=== PATIENT | female | born 1960 | race Caucasian/White ===

== ENCOUNTER 2025-05-06 06:59 | Emergency (ER) | payer OTHER, SELFPAY ==
--- OUTSIDE RECORDS SUMMARY | 2025-05-02 11:45 | XMS_ITS | Encounter Summary ---
Author Organization [facility] Address [address] [place] [id number] Care Team Providers Care Veneer Taping Machine Operator Name Role Phone Tarah Choudhury MD Primary Care Provider [phone] Reason for Referral * Imaging - Diagnostic (Routine) - Closed Specialty Diagnoses / Procedures Referred By Contac t Referred To Contact Diagnoses Left hip pain Procedures X-ray Hip 2+ Views with AP Pelvis Left Janessa Rodríguez, PAC [address] [facility] [address] [place] [address] Phone: tel: fax: Referral ID Status Reason Start Date Expiration Date Visits Re quested Visits Authorized [id number] Closed 05/02/2025 07/31/2026 1 1 EL WORKER Reason for Visit * Imaging - Diagnostic (Routine) - Closed Specialty Diagnoses / Procedures Referred By Contac t Referred To Contact Diagnoses Left hip pain Procedures X-ray Hip 2+ Views with AP Pelvis Left Janessa Rodríguez, PAC [address] [facility] [address] [place] [address] Phone: tel: fax: Referral ID Status Reason Start Date Expiration Date Visits Re quested Visits Authorized [id number] Closed 05/02/2025 07/31/2026 1 1 Encounter Details Date Type Department Care Team (Latest Contact Info) Description 05/02/2025 11:45 AM GOSPEL WORKER - 05/02/2025 11:59 PM GOSPEL WORKER Hospital Encounter [facility] Diagnostic Radiology [address] [place] [id number] Left hip pain Discharge Disposition: Home With No Services Social History Tobacco Use Types Packs/Day Years Used Date Smoking Tobacco: Never Smokeless Tobacco: Never Comments Unknown Sex and Gender Information Value Date Recorded Sex Assigned at Not on file Legal Sex Female 3:56 PM CDT Gender Identity Not on file Sexual Orientation Not on file documented as of this encounter Medications at Time of Discharge atenoloL (Tenormin) 50 mg tablet Take 1 tablet (50 mg total) by mouth daily. cephALEXin (Keflex) 500 mg capsule TAKE 4 CAPSULES 1 HOUR PRIOR TO DENTAL APPOINTMENT 01/03/2025 chlorthalidone (Hygroten) 25 mg tablet Take 1 tablet (25 mg total) by mouth daily. ketoconazole (NIZORAL) 2 % cream 11/26/2024 latanoprost (XALATAN) 0.005 % ophthalmic solution 01/29/2025 lisinopriL (Zestril) 20 mg tablet Take 1 tablet (20 mg total) by mouth daily. rosuvastatin (Crestor) 5 mg tablet Take 1 tablet (5 mg total) by mouth daily. spironolactone (Aldactone) 50 mg tablet Take 1 tablet (50 mg total) by mouth daily with morning meal. Zepbound 15 mg/0.5 mL pen injector See Instructions, INJECT 1 SYRINGE (15 MG) INTO THE SKIN ONCE A WEEK, # 2 mL, 1 Refill(s), Pharmacy: [facility], 163, cm, 11/26/24 15:08:00 CDT, Height, 83.8, kg, 11/26/24 15:09:00 CDT, Weight Dosing 12/22/2024 documented as of this encounter Plan of Treatment Not on file documented as of this encounter Procedures Procedure Name Priority Date/Time Associated Diagnosis Comments XR HIP 2+ VIEWS WITH AP PELVIS LEFT Routine 05/02/2025 12:09 PM GOSPEL WORKER Left hip pain documented in this encounter Results * X-ray Hip 2+ Views with AP Pelvis Left (05/02/2025 12:09 PM GOSPEL WORKER) Anatomical Region Laterality Modality Pelvis, Hip Left Radiographic Sofia ging Impressions 05/02/2025 3:22 PM GOSPEL WORKER EXAM: XR HIP 2+ VIEWS WITH AP PELVIS LEFT INDICATION: hip pain, left COMPARISON: XR HIP 2+ VIEWS WITH AP PELVIS RIGHT on DOS: 02/17/25 FINDINGS/IMPRESSION: Bilateral total hip arthroplasty with no periprosthetic fracture or loosening observed. No pelvic fracture seen. Moderate multilevel spondylosis and degenerative disc changes of lower lumbar spine noted. EL WORKER Narrative Procedure Note Karyna Hercules T, DO - 05/02/2025 IMPRESSION: EXAM: XR HIP 2+ VIEWS WITH AP PELVIS LEFT INDICATION: hip pain, left COMPARISON: XR HIP 2+ VIEWS WITH AP PELVIS RIGHT on DOS: 02/17/25 FINDINGS/IMPRESSION: Bilateral total hip arthroplasty with noperiprosthetic fracture or loosening observed. No pelvic fracture seen.Moderate multilevel spondylosis and degenerative disc changes of lowerlumbar spine noted. EL WORKER Janessa Rodríguez PAC IMG XR PROCEDURES Final Res ult documented in this encounter Visit Diagnoses Diagnosis Left hip pain Pain in joint, pelvic region and thigh documented in this encounter Care Teams Veneer Taping Machine Operator Relationship Specialty Start Date End Date Tarah Choudhury MD [facility] [place] [address] PCP - General Family Medicine 01/20/25 documented as of this encounter Additional Source Comments The accuracy of any Insurance information included in this report is notguaranteed and should be verified by the recipient.[employer]
--- OUTSIDE RECORDS SUMMARY | 2025-05-02 11:50 | XMS_ITS | Encounter Summary ---
Author Organization [facility] Address [address] [place] [id number] Care Team Providers Care Hot Patcher Name Role Phone Tarah Choudhury MD Primary Care Provider [phone] Reason for Referral * Clinic-Administered Medication (Routine) - Pending Review Specialty Diagnoses / Procedures Referred By Contac t Referred To Contact Diagnoses Left hip pain Janessa Rodríguez PAC [address] [place] [address] Phone: tel: fax: Referral ID Status Reason Start Date Expiration Date V isits Requested Visits Authorized [id number] Pending Review 05/02/2025 07/31/2026 1 1 SPHERIC TECHNICIAN * Imaging - Diagnostic (Routine) - Closed Specialty Diagnoses / Procedures Referred By Contac t Referred To Contact Diagnoses Left hip pain Procedures X-ray Hip 2+ Views with AP Pelvis Left Janessa Rodríguez PAC [address] [employer] [address] [place] [address] Phone: tel: fax: Referral ID Status Reason Start Date Expiration Date Visits Re quested Visits Authorized [id number] Closed 05/02/2025 07/31/2026 1 1 SPHERIC TECHNICIAN Reason for Visit * Reason Comments Left hip pain * Clinic-Administered Medication (Routine) - Pending Review Specialty Diagnoses / Procedures Referred By Contac t Referred To Contact Diagnoses Left hip pain Janessa Rodríguez PAC [address] [place] [address] Phone: tel: fax: Referral ID Status Reason Start Date Expiration Date V isits Requested Visits Authorized [id number] Pending Review 05/02/2025 07/31/2026 1 1 Encounter Details Date Type Department Care Team (Late st Contact Info) Description 05/02/2025 11:50 AM ATMOSPHERIC TECHNICIAN Office Visit [facility] [address] [place] [address] Janessa Rodríguez, PAC [address] [facility] [address] [place] [address] Greater trochanteric bursitis of left hip (Primary Dx); Iliotibial band syndrome of left side; Left hip pain Social History Tobacco Use Types Packs/Day Years Used Date Smoking Tobacco: Never Smokeless Tobacco: Never Comments Unknown Sex and Gender Information Value Date Recorded Sex Assigned at Not on file Legal Sex Female 3:56 PM CDT Gender Identity Not on file Sexual Orientation Not on file documented as of this encounter Last Filed Vital Signs Vital Sign Reading Time Taken Comments Blood Pressure 105/72 05/02/2025 12:15 PM ATMOSPHERIC TECHNICIAN Pulse 104 05/02/2025 12:15 PM ATMOSPHERIC TECHNICIAN Temperature - - Respiratory Rate - - Oxygen Saturation 97% 05/02/2025 12: 15 PM ATMOSPHERIC TECHNICIAN Inhaled Oxygen Concentration - - Weight 74.8 kg (164 lb 12.8 oz) 025 12:15 PM ATMOSPHERIC TECHNICIAN Height - - Body Mass Index 28.29 02/17/2025 11:30 AM CDT documented in this encounter Progress Notes * Janessa Rodríguez, PAC - 05/02/2025 11:50 AM CST Subjective Mayela Hensley is a 65 y.o. female. HPI Pt here for Left hip pain . Pt states she woke up with it yesterday morning. Last injection was 02/17/24 and has lasted since then. She does have a history of bilateral total hip arthroplasties in 2010. Ambulating with a walker today in clinic due to the lateral hip pain. Denies any anterior hip or groin pain. Denies any injuries. Denies any fevers or chills. Review of Systems ROS reviewed and negative except noted in HPI. Vitals: 05/02/25 1215 BP: 105/72 Pulse: 104 SpO2: 97% Objective Physical Exam General: Alert, cooperative, no acute distress Left lower extremity: Examination of the left hip demonstrates no skin lesions, no erythema, no ecchymosis. Tenderness palpation about the lateral hip greater trochanteric bursa, as well as with palpation of the lateral thigh along the iliotibial band. Hip flexion to 120 degrees without significantpain. Internal rotation to10 degrees, external rotation to 60 degrees. Pain to the lateral hip withcross leg iliotibial band stretch. Positive Enoc's. Negative impingement. Negative straight leg raise. Neurovascular intact distally to the left lower extremity. Imaging AP pelvis and 2 view x-ray of the left hip obtained interpreted today in clinic demonstrates stablealignment of bilateral total hip arthroplasties, no signs of hardware loosening or failure. No acute fractures or dislocations. Significant degenerative changes about the lumbar spine. Assessment & Plan Iliotibial band syndrome of left side Greater trochanteric bursitis of left hip Discussed patient's diagnosis treatment options with her. She has undergone bilateral total hip arthroplasty proximately 15 years ago. She has had recurrent greater trochanteric bursitis on a few episodes, most recently received a cortisone injection over 1 year ago to the left hip which provided significant and lasting relief until recently. We discussed treatment options with her and she wishedto proceed with a cortisone injection today in clinic. After discussion with the patient, it was felt they may benefit from an injection. The risks of theprocedure were discussed with the patient, and they did verbalize understanding of those risks and consented to the injection. PROCEDURE: The skin was prepped with betadine and alcohol. The skin was sprayed with ethyl chloride, and the left greater trochanteric bursa was injected with 80 mg Kenalog and 6 mL of 0.5% Marcaine. The patient tolerated the procedure well. A band aid was applied at the end of the procedure. Patient does have known significant degenerative changes about the lumbar spine as well. She does have some pain radiating from her low back which may be further exacerbating the pain to the lateral hip. If she does not see significant lasting relief from cortisone injection, may again consider referral to pain management for lumbar spine injections versus MRI of her lumbar spine. May also consider a course of physical therapy for recurrent iliotibial band syndrome and greater trochanteric bursitis. She may follow-up as needed. MIKAEL Archibald *This note was compiled in part using Spritz voice recognition technology. This note may contain typographical, grammatical, or voice errors.* SPHERIC TECHNICIAN documented in this encounter Plan of Treatment Not on file documented as of this encounter Results * X-ray Hip 2+ Views with AP Pelvis Left (05/02/2025 12:09 PM ATMOSPHERIC TECHNICIAN) Anatomical Region Laterality Modality Pelvis, Hip Left Radiographic Sofia ging Impressions 05/02/2025 3:22 PM ATMOSPHERIC TECHNICIAN EXAM: XR HIP 2+ VIEWS WITH AP PELVIS LEFT INDICATION: hip pain, left COMPARISON: XR HIP 2+ VIEWS WITH AP PELVIS RIGHT on DOS: 02/17/25 FINDINGS/IMPRESSION: Bilateral total hip arthroplasty with no periprosthetic fracture or loosening observed. No pelvic fracture seen. Moderate multilevel spondylosis and degenerative disc changes of lower lumbar spine noted. SPHERIC TECHNICIAN Narrative Procedure Note Karyna Hercules T, DO - 05/02/2025 IMPRESSION: EXAM: XR HIP 2+ VIEWS WITH AP PELVIS LEFT INDICATION: hip pain, left COMPARISON: XR HIP 2+ VIEWS WITH AP PELVIS RIGHT on DOS: 02/17/25 FINDINGS/IMPRESSION: Bilateral total hip arthroplasty with noperiprosthetic fracture or loosening observed. No pelvic fracture seen.Moderate multilevel spondylosis and degenerative disc changes of lowerlumbar spine noted. SPHERIC TECHNICIAN us Janessa Rodríguez PAC IMG XR PROCEDURES Final Res ult documented in this encounter Visit Diagnoses Diagnosis Greater trochanteric bursitis of left hip- Primary Iliotibial band syndrome of left side Left hip pain Pain in joint, pelvic region and thigh Left hip pain Pain in joint, pelvic region and thigh documented in this encounter Administered Medications Inactive Administered Medications - up to 3 most recent administrations Medication Order MAR Action Action Date Dose Rate Site bupivacaine (PF) 0.5% (Marcaine) injection 6 mL 6 mL, injection, Once, On Fri05/02/25 at 1300, For 1 doseIndications:Left hip pain Given 05/02/2025 12:30 PM ATMOSPHERIC TECHNICIAN 6 mL triamcinolone acetonide (Kenalog-40) 40 mg/mL injection 80 mg 80 mg, Other, Once, On Fri05/02/25 at 1300, For 1 dose, Shake wellIndications:Left hip pain Given 05/02/2025 12:30 PM ATMOSPHERIC TECHNICIAN 80 mg documented in this encounter Care Teams Hot Patcher Relationship Specialty Start Date End Date Tarah Choudhury MD [facility] [place] [address] PCP - General Family Medicine 01/20/25 documented as of this encounter Additional Source Comments The accuracy of any Insurance information included in this report is notguaranteed and should be verified by the recipient.[facility]
--- NOTE | 2025-05-06 07:01 | XR_ITS ---
WS: [id number] Exam: XR shoulder RT min 2V* [id number] Date/Time of Exam: 05/06/2025 7:13 AM Reason For Exam: injury DLP: No acute fracture. Minimal AC joint DJD. Normal soft tissues. XR/XR shoulder RT min 2V* [id number] IMPRESSION: 1. Minimal DJD.
[2025-05-06 07:05] VITALS: BP 137/89; PULSE 122; RESP 18; TEMP 37.1; O2SAT 99; BMI 28.3
--- NOTE | 2025-05-06 07:08 | W.ED.UPPEXIN ---
HPI - Extremity Injury (Upper) General: Chief Complaint: Extremity Injury, Upper Stated Complaint: Rt shoulder inj Time Seen by Provider: 05/06/25 07:01 Source: patient Mode of arrival: ambulatory Limitations: no limitations History of Present Illness: 65-year-old female states that she has been having pain in the right upper shoulder for last 2 days. She states she has been using that right arm more to get up and down and feels like she could have strained it pain is much worse with movement denies any specific injury she rates her pain an 8 out of 10 denies any fever. Related Data Previous Rx's ?Medication ?Instructions ?Recorded methocarbamol 750 mg tablet 750 mg PO Q6H PRN spasms #20 tabs 05/06/25 Allergies Allergy/AdvReac Type Severity Reaction Status Date / Time cefpodoxime (From Vantin) Allergy ADR-Dizzine Verified 05/06/25 07:21 ss clindamycin Allergy ALGY-Hives Verified 05/06/25 07:21 demeclocycline (From Allergy ALGY-Rash Verified 05/06/25 07:21 Declomycin) erythromycin base Allergy ALGY-Rash Verified 05/06/25 07:21 gatifloxacin Allergy ADR-Dizzine Verified 05/06/25 07:21 ss ketorolac (From Toradol) Allergy ADR-Nausea Verified 05/06/25 07:21 meperidine (From Demerol) Allergy ADR-Nausea Verified 05/06/25 07:21 ofloxacin Allergy ADR-Dizzine Verified 05/06/25 07:21 ss Penicillins Allergy ALGY-Rash Verified 05/06/25 07:21 prednisone Allergy ALGY-Hives Verified 05/06/25 07:21 red dye Allergy ALGY-Rash Verified 05/06/25 07:21 sulfamethoxazole (From Allergy ALGY-Hives Verified 05/06/25 07:21 Bactrim) trimethoprim (From Bactrim) Allergy ALGY-Hives Verified 05/06/25 07:21 Review of Systems Musc: Reports: extremity pain Physical Exam Const: COMMON NORMALS: no acute distress, patient oriented x3 and healthy appearing HENMT: COMMON NORMALS: normocephalic and atraumatic HEAD & SCALP: normocephalic and atraumatic Neck/C-Spine: COMMON NORMALS: full ROM and supple Chest: COMMONS NORMALS: normal inspection of the chest Resp: COMMON NORMALS: normal respiratory effort, No retractions, No use of accessory muscles and clear to auscultation bilaterally AUSCULTATION: clear to auscultation bilaterally Cardio: COMMON NORMALS: regular rate RATE: regular rate Extremity: NARRATIVE EXTREMITY EXAM: Tenderness noted over right shoulder pain with range of motion Neuro: COMMON NORMALS: patient oriented x3, moves all extremities and no focal motor deficits Psych: COMMON NORMALS: mental status grossly normal, Normal thought process present and cooperative THOUGHT PROCESS: Normal thought process present Skin: COMMON NORMALS: no rashes or lesions noted and no wounds GENERAL SKIN EXAM: no rashes or lesions noted Course Vital Signs: Vital signs: Vital Signs Temperature 98.7 F 05/06/25 07:05 Pulse Rate 116 H 05/06/25 07:27 Respiratory Rate 20 H 05/06/25 07:39 Blood Pressure 126/82 05/06/25 07:27 Pulse Oximetry 100 05/06/25 07:39 Oxygen Delivery Me thod Room Air 05/06/25 07:05 MDM - Extremity Injury (Upper) Medical Decision Making Patient presents here with right shoulder pain differential includes fracture, dislocation, muscle spasm. Did interpret x-ray myself of her right shoulder showed no acute abnormality. She was likely having muscle spasms and a muscle strain did give her morphine along with Valium and Robaxin here. Did place her in a sling she is to follow-up with her PCP return if worsening. Medical Records I reviewed the patient's medical records. All radiology interpretation(s) finalized by discharge ED provider radiology interpretation(s): xr right shoulder: no acute abnormality Discharge Plan Discharge Patient Disposition: Home Clinical Impression: Pain in right shoulder Condition: Stable Prescriptions: New methocarbamol 750 mg tablet 750 mg PO Q6H PRN (Reason: spasms) Qty: 20 0RF Discharge Orders: Discharge ED (Routine); Ordered 05/06/25 Ordered By: Olivia Roblero Discharge Diet: Advance as tolerated Discharge Activity: Resume usual activity Patient Instructions: Muscle Spasm (ED), Shoulder Pain (ED) Print Language: Korean Coding Level of Care Code 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
--- OUTSIDE RECORDS SUMMARY | 2025-05-06 07:11 | XMS_ITS | Patient Health Record ---
Author Organization [facility] Address [address] [facility] [address] [place] [address] Care Team Providers Care Lacquer Sizer Name Role Phone Apolinar Penn MD Unavailable [phone] Reason For Referral No Information Medications Medication SIG (Take, Route, Frequency, Duration) Notes Start Date End Date Status Timolol Maleate 0.5 % Ophthalmic Active Metoprolol Tartrate 50 MG Oral Active Dorzolamide HCl 2 % Ophthalmic Active Losartan Potassium 100 MG Oral Active Chlorthalidone 25 MG Oral Active Advil 200 MG Oral Active Latanoprost 0.005 % Ophthalmic Active Rosuvastatin Calcium 5 MG Oral Active Problems Problem Type SNOMED Code ICD Code Onset Dates Problem Status W/U Status Risk Notes Problem Obesity (804359181) Obesity, unspecified (E66.9) 8 Active confirmed Problem Pain of left hip joint (finding) (447373226535661 ) Pain in left hip (M25.552) 8 Active confirmed Problem Trochanteric bursitis of left hip (839914087273130 ) Trochanteric bursitis, left hip (M70.62) 8 Active confirmed Problem History of artificial joint (852379227) Presence of left artificial hip joint (Z96.642) 8 Active confirmed Plan Of Treatment No Information Insurance Providers Payer Name Payer Address Payer Phone Subscriber Number Group Number Insured Name Patient Relationship to Insured Coverage Start Date Coverage End Date [facility] [id number] [address] [place] [address] [id number] FAMILIA SCANLON Self - patient is the insured 8 Medical (General) History Surgical History Surgery Date(Month/Year) Cataract Surgery, D and C, F oot Surgery-Right, Gallbladder Surgery, Hip Replacement-Left, Hip Replacement-Right, Hysterectomy, Rotator Cuff Repair-Left, Tonsillectomy PAST SurgHX Till 07/14/2017
--- OUTSIDE RECORDS SUMMARY | 2025-05-06 07:11 | XMS_ITS | Clinical Summary ---
Author Organization [facility] Address [address] [place] [address] Care Team Providers Care Usps Letter Carrier Name Role Phone Unavailable Primary Care Provider Unavailabl e Social History Tobacco Use Types Packs/Day Years Used Date Smoking Tobacco: Never Assessed Comments Unknown Sex and Gender Information Value Date Recorded Sex Assigned at Not on file Legal Sex Female 8:25 AM ACID SPLICER Gender Identity Not on file Sexual Orientation Not on file Plan of Treatment Health Maintenance Due Date Last Done Comments Breast Cancer Screening-Mammogram 1967 DTaP,Tdap,and Td Vaccines (1 - Tdap) 1980 Hepatitis C Screening 1980 MMR Vaccines-Adult 1981 Cervical Cancer Screening 1983 Colon Cancer Screening 2007 Pneumo-Vaccine: 50+Yrs (1 of 1 - PCV) 2012 Zoster Vaccine (1 of 2) 2012 COVID-19 Vaccine ( - 2024-2 6 season) 2025 Influenza Vaccine (#1) 2025 RSV Vaccine (60+ & 32-36 wks ) (1 - 1-dose 75+ series) 2037 HIB Vaccines Aged Out No longer eligi ble based on patient's age to complete this topic IPV Vaccines Aged Out No longer eligi ble based on patient's age to complete this topic Meningococcal B Vaccine Aged Out No l onger eligible based on patient's age to complete this topic Meningococcal Vaccine Aged Out No judy jesus eligible based on patient's age to complete this topic Rotavirus Vaccines Aged Out No longer eligible based on patient's age to complete this topic
--- OUTSIDE RECORDS SUMMARY | 2025-05-06 07:11 | XMS_ITS | Encounter Summary ---
Author Organization [facility] Address [address] [place] [address] Care Team Providers Care Food Trades Assistants Name Role Phone Tarah Choudhury MD Primary Care Provider [phone] Encounter Details Date Type Department Care Team (Late st Contact Info) Description 12/31/2024 [facility] [address] [place] [address] Carlton Santa, DO [address] [place] [address] Social History Tobacco Use Types Packs/Day Years Used Date Smoking Tobacco: Never Assessed Comments Unknown Sex and Gender Information Value Date Recorded Sex Assigned at Not on file Legal Sex Female 3:56 PM CDT Gender Identity Not on file Sexual Orientation Not on file documented as of this encounter Last Filed Vital Signs Vital Sign Reading Time Taken Comments Blood Pressure 106/76 11/09/2024 1:47 PM CDT Pulse 82 11/09/2024 1:47 PM CDT Temperature - - Respiratory Rate - - Oxygen Saturation - - Inhaled Oxygen Concentration - - Weight 83.5 kg (184 lb) 11/09/2024 1:47 PM CDT Height - - Body Mass Index - - documented in this encounter Plan of Treatment Not on file documented as of this encounter Visit Diagnoses Not on filedocumented in this encounter Care Teams Food Trades Assistants Relationship Specialty Start Date End Date Tarah Choudhury MD [address] [place] [address] PCP - General Family Medicine 01/20/25 documented as of this encounter Additional Source Comments The accuracy of any Insurance information included in this report is notguaranteed and should be verified by the recipient.[employer]
--- OUTSIDE RECORDS SUMMARY | 2025-05-06 07:11 | XMS_ITS | Encounter Summary ---
Author Organization [facility] Address [address] [place] [id number] Care Team Providers Care Sprinkler Tender Name Role Phone Tarah Choudhury MD Primary Care Provider [phone] Reason for Referral * Consultation (Routine) - Closed Specialty Diagnoses / Procedures Referred By Jony webster Referred To Contact Orthopaedic Surgery Diagnoses S/P arthroscopy of left shoulder Right hip pain Referral, Self Carlton Santa DO [address] [place] [address] Phone: tel: fax: Referral ID Status Reason Start Date Expiration Date V isits Requested Visits Authorized [id number] Closed Specialty Services Required 01/24/2025 04/24/2026 1 1 Encounter Details Date Type Department Care Team (Latest Contact Info) Description 01/24/2025 Transcribe Orders [facility] [address] [place] [phone] Referral, Self S/P arthroscopy of left shoulder (Primary Dx); Right hip pain Social History Tobacco Use Types Packs/Day Years Used Date Smoking Tobacco: Never Assessed Comments Unknown Sex and Gender Information Value Date Recorded Sex Assigned at Not on file Legal Sex Female 3:56 PM CDT Gender Identity Not on file Sexual Orientation Not on file documented as of this encounter Plan of Treatment Scheduled Referrals Name Type Priority Associated Diagnoses Orde r Schedule Ambulatory referral to Orthopedics Outpatient Referral Routine S/P arthroscopy of left shoulder Right hip pain Expected: 01/24/2025, Expires: 01/24/2026 documented as of this encounter Visit Diagnoses Diagnosis S/P arthroscopy of left shoulder- Primary Right hip pain Pain in joint, pelvic region and thigh documented in this encounter Care Teams Sprinkler Tender Relationship Specialty Start Date End Date Tarah Choudhury MD [address] [place] [phone] PCP - General Family Medicine 01/20/25 documented as of this encounter Additional Source Comments The accuracy of any Insurance information included in this report is notguaranteed and should be verified by the recipient.[facility]
--- OUTSIDE RECORDS SUMMARY | 2025-05-06 07:11 | XMS_ITS | Patient Health Record ---
Author Organization [facility] Billing Info Address [address] [place] [address] [place] [address] Support Name Relationship Address Phone KHARI HENSLEY Emergency Contact [address] [place] [address] Mayela Hensley Guarantor Unknown [phone] Allergies Allergen (clinical drug ingredient) Drug/Non Drug Allergy documented on EMR Reaction Allergy Type Onset Date Status sulfamethoxazole / trimethoprim Bactrim Unknown Drug Allergy Active Declomycin Unknown Drug Allergy Active meperidine Demerol Unknown Drug Allergy Active erythromycin Erythromycin Unknown Drug Allergy A ctive Gatifloxacin Unknown Drug Allergy Acti ve ketorolac Ketorolac Tromethamine Unknown Drug Allergy Active ofloxacin Ofloxacin Unknown Drug Allergy Active Vantin Unknown Drug Allergy Active RED DYE Unknown Drug Allergy Active Penicillin Unknown Drug Allergy Active Reason For Referral No Information Medications Medication SIG (Take, Route, Frequency, Duration) Notes Start Date End Date Status Latanoprost 0.005 % Ophthalmic for 25 Active Quinapril HCl 40 MG Oral for 90 Active Rosuvastatin Calcium 5 MG Oral for 90 Active Atenolol 50 MG Oral for 90 Act matthew Spironolactone 100 MG Oral for 90 Active Chlorthalidone 25 MG Oral for 90 Active Social History Tobacco Status: Question Answer Notes Patient is a non tobacco user Problems Problem Type SNOMED Code ICD Code Onset Dates Problem Status W/U Status Risk Notes Problem 983832114233284 Primary osteoarthritis of left knee (M17.12) Active confirmed Large Loose bodies present Problem [id number] History of left hip replacement (Z96.642) Active confirmed Plan Of Treatment Pending Test Test Name Order Date CT- EXTREMITY LOWER W/O CONT LT (46362)( [id number]) 03/26/2019 PHYSICAL THERAPY TO EVAL & TREAT 020 Insurance Providers Payer Name Payer Address Payer Phone Subscriber Number Group Number Insured Name Patient Relationship to Insured Coverage Start Date Coverage End Date [facility] CHOICE PLUS/[id number] [address] [place], [place] [phone] [id number] ShellieMayela bartholomew Self - patient is the insured 8 8 Medications Administered Medication Instructions Date of Administration Dosage Notes zMethylprednisolone Acetate 40 mg (Depo Medrol) 03/12/2019 2 mL IART knee zMethylprednisolone Acetate 40 mg (Depo Medrol) 09/29/2019 80 mg Betamethasone Sodium Phos/Betamethasone Acetate (Celestone Soluspan) 11/10/2020 12 mg IA left adriane ulder Medical (General) History Medical History History ICD Code Arthritis Broken Foot Glaucoma Osteoporosis Joint pain/swelling Surgical History Surgery Date(Month/Year) lt hip 13 rt hip 11 cataracts 11 broken foot 04 torn rotator cuff 01 hysterectomy 96 gb 93 lt knee 1989 rt knee 1989 bladder 1974 tonsillectomy 1965 LEFT TKA 07/2019 bilateral LEONA 2007, 2008 L TKA 2019 gallbladder RCR L shoulder Hospitalization History Reason Date(Month/Year) See Above
--- OUTSIDE RECORDS SUMMARY | 2025-05-06 07:12 | XMS_ITS | Clinical Summary ---
Author Organization [facility] Address [address] [place] [address] Care Team Providers Care Oyster Preparer Name Role Phone Tarah Choudhury MD Primary Care Provider [phone] Allergies Active Allergy Reactions Criticality Noted Date Comments Sulfamethoxazole-Trimethoprim 2024 Clindamycin 12/31/2024 Demeclocycline 12/31/2024 Meperidine 12/31/2024 Erythromycin 12/31/2024 Gatifloxacin 12/31/2024 Ofloxacin 12/31/2024 Penicillins 12/31/2024 Prednisone 12/31/2024 Red Dye 12/31/2024 Ketorolac 12/31/2024 Cefpodoxime 12/31/2024 Medications atenoloL (Tenormin) 50 mg tablet Take 1 tablet (50 mg total) by mouth daily. Active chlorthalidone (Hygroten) 25 mg tablet Take 1 tablet (25 mg total) by mouth daily. Active lisinopriL (Zestril) 20 mg tablet Take 1 tablet (20 mg total) by mouth daily. Active rosuvastatin (Crestor) 5 mg tablet Take 1 tablet (5 mg total) by mouth daily. Active spironolactone (Aldactone) 50 mg tablet Take 1 tablet (50 mg total) by mouth daily with morning meal. Active cephALEXin (Keflex) 500 mg capsule TAKE 4 CAPSULES 1 HOUR PRIOR TO DENTAL APPOINTMENT 5 Active ketoconazole (NIZORAL) 2 % cream 5 Active latanoprost (XALATAN) 0.005 % ophthalmic solution 5 Active Zepbound 15 mg/0.5 mL pen injector See Instructions, INJECT 1 SYRINGE (15 MG) INTO THE SKIN ONCE A WEEK, # 2 mL, 1 Refill(s), Pharmacy: [facility], 163, cm, 11/26/24 15:08:00 CDT, Height, 83.8, kg, 11/26/24 15:09:00 CDT, Weight Dosing Active Hospital, Clinic, or Other Facility Administered Medication Ordered Dose Route Frequency Start Date End Date Status bupivacaine (PF) 0.5% (Marcaine) injection 6 mLIndications:Left hip pain 6 mL inj Once 05/02/2025 05/02/20 Ended triamcinolone acetonide (Kenalog-40) 40 mg/mL injection 80 mgIndications:Left hip pain 80 mg OTHER Once 05/02/2025 05/02/20 Ended Encounters Date Type Department Care Team Description 05/02/2025 11:50 AM LOST CHARGE CARD CLERK Office Visit [facility] [address] [place] [phone] Janessa Rodríguez, MIKAEL Greater trochanteric bursitis of left hip (Primary Dx); Iliotibial band syndrome of left side; Left hip pain 05/02/2025 11:45 AM LOST CHARGE CARD CLERK - 05/02/2025 11:59 PM LOST CHARGE CARD CLERK Hospital Encounter [facility] [address] [place] [phone] Left hip pain Discharge Disposition: Home With No Services 02/17/2025 10:50 AM CDT Office Visit [facility] [address] [phone] Carlton Santa, DO S/P arthroscopy of left shoulder (Primary Dx); Right hip pain; Greater trochanteric bursitis of right hip 02/17/2025 9:49 AM CDT - 02/17/2025 11:59 PM CDT Hospital Encounter [facility] [address] [place] [phone] Right hip pain Discharge Disposition: Home With No Services 02/14/2025 Orders Only [facility] [address] [place] [phone] Adelina Mcbride RN Right hip pain (Primary Dx) from Last 3 Months Social History Tobacco Use Types Packs/Day Years Used Date Smoking Tobacco: Never Smokeless Tobacco: Never Tobacco Cessation:Counseling Given: Not Answered Comments Unknown Sex and Gender Information Value Date Recorded Sex Assigned at Not on file Legal Sex Female 3:56 PM CDT Gender Identity Not on file Sexual Orientation Not on file Last Filed Vital Signs Vital Sign Reading Time Taken Comments Blood Pressure 105/72 05/02/2025 12:15 PM LOST CHARGE CARD CLERK Pulse 104 05/02/2025 12:15 PM LOST CHARGE CARD CLERK Temperature - - Respiratory Rate - - Oxygen Saturation 97% 05/02/2025 12: 15 PM LOST CHARGE CARD CLERK Inhaled Oxygen Concentration - - Weight 74.8 kg (164 lb 12.8 oz) 025 12:15 PM LOST CHARGE CARD CLERK Height 162.6 cm (5' 4 ) 02/17/2025 11:3 0 AM CDT Body Mass Index 28.29 02/17/2025 11:30 AM CDT Plan of Treatment Health Maintenance Due Date Last Done Comments Cologuard every 3 years 1962 Colon Cancer Screening 5 yea r Sigmoidoscopy 1962 Colon Cancer Screening Maryua l FOBT 1962 Colonoscopy 1962 Colorectal Cancer Screening 1962 Annual Exam 1963 MMR Vaccines (1 of 1 - Standard series) 1963 Mammogram 1963 Pap Smear 1983 Pneumococcal Vaccine: 65+ Years (1 of 1 - PCV) 2012 Depression Screening 06/02/2024 COVID-19 Vaccine (1 - 2024-2 6 season) 2025 DTaP,Tdap,and Td Vaccines (2 - Td or Tdap) 02/11/2035 02/11/2025, 11/13/2004 RSV Vaccines (1 - 1-dose 75+ series) 2037 Shingrix Completed 02/05/2022, 10/07/2021 Influenza Vaccine Completed 02/04/2025, 03/06/2022, 07/04/2021 HIB Vaccines Aged Out No longer eligi ble based on patient's age to complete this topic HPV Vaccines Aged Out No longer eligi ble based on patient's age to complete this topic Hepatitis A Vaccines Aged Out No long er eligible based on patient's age to complete this topic Hepatitis B Vaccines Aged Out No long er eligible based on patient's age to complete this topic IPV Vaccines Aged Out No longer eligi ble based on patient's age to complete this topic Meningococcal Vaccine Aged Out No judy jesus eligible based on patient's age to complete this topic Pneumococcal Vaccine: Pediatrics (0 to 5 Years) and At-Risk Patients (6 to 64 Years) Aged Out No longer eligible b ased on patient's age to complete this topic Procedures Procedure Name Priority Date/Time Associated Diagnosis Comments XR HIP 2+ VIEWS WITH AP PELVIS LEFT Routine 05/02/2025 12:09 PM LOST CHARGE CARD CLERK Left hip pain XR HIP 2+ VIEWS WITH AP PELVIS RIGHT Routine 02/17/2025 11:08 AM CDT Right hip pain from Last 3 Months Results * X-ray Hip 2+ Views with AP Pelvis Left (05/02/2025 12:09 PM LOST CHARGE CARD CLERK) Anatomical Region Laterality Modality Pelvis, Hip Left Radiographic Sofia ging Impressions 05/02/2025 3:22 PM LOST CHARGE CARD CLERK EXAM: XR HIP 2+ VIEWS WITH AP PELVIS LEFT INDICATION: hip pain, left COMPARISON: XR HIP 2+ VIEWS WITH AP PELVIS RIGHT on DOS: 02/17/25 FINDINGS/IMPRESSION: Bilateral total hip arthroplasty with no periprosthetic fracture or loosening observed. No pelvic fracture seen. Moderate multilevel spondylosis and degenerative disc changes of lower lumbar spine noted. CHARGE CARD CLERK Narrative Procedure Note Karyna Hercules T, DO - 05/02/2025 IMPRESSION: EXAM: XR HIP 2+ VIEWS WITH AP PELVIS LEFT INDICATION: hip pain, left COMPARISON: XR HIP 2+ VIEWS WITH AP PELVIS RIGHT on DOS: 02/17/25 FINDINGS/IMPRESSION: Bilateral total hip arthroplasty with noperiprosthetic fracture or loosening observed. No pelvic fracture seen.Moderate multilevel spondylosis and degenerative disc changes of lowerlumbar spine noted. CHARGE CARD CLERK Janessa Rodríguez PAC IMG XR PROCEDURES Final Res ult * X-ray Hip 2+ Views with AP Pelvis Right (02/17/2025 11:08 AM CDT) Anatomical Region Laterality Modality Pelvis, Hip Right Radiographic Sofia ging Impressions 02/17/2025 11:10 PM CDT EXAM: Pelvis and right hip TECHNIQUE: 3 view(s) radiographs INDICATION: hip pain, right no prev COMPARISON: None FINDINGS: Right LEONA intact. Mild heterotopic ossification. No acute fracture or dislocation. Joint spaces are preserved. Soft tissues negative. IMPRESSION: 1. Right LEONA intact CHARGE CARD CLERK Narrative Procedure Note Emiliano Akins MD - 02/17/2025 IMPRESSION: EXAM: Pelvis and right hip TECHNIQUE: 3 view(s) radiographs INDICATION: hip pain, right no prev COMPARISON: None FINDINGS: Right LEONA intact. Mild heterotopic ossification. No acute fracture or dislocation. Joint spaces are preserved. Soft tissues negative. IMPRESSION: 1. Right LEONA intact CHARGE CARD CLERK Janessa Rodríguez [facility] IMG XR PROCEDURES Final Res ult from Last 3 Months Insurance [facility] [id number] [place] [address] Care Teams Oyster Preparer Relationship Specialty Start Date End Date Tarah Choudhury MD [address] [place] [address] PCP - General Family Medicine 01/20/25 Additional Source Comments The accuracy of any Insurance information included in this report is notguaranteed and should be verified by the recipient.[facility]
--- OUTSIDE RECORDS SUMMARY | 2025-05-06 07:12 | XMS_ITS | Encounter Summary ---
Author Organization [facility] Address [address] [place] [address] Care Team Providers Care Instrument Adjuster Name Role Phone Unavailable Primary Care Provider Unavailabl e Encounter Details Date Type Department Care Team (Latest Contact Info) Description 03/19/2023 Lab Requisition [facility] [address] [place], [place] Carlton Santa DO [address] [place] [address] Encounter for other preprocedural examination Social History Tobacco Use Types Packs/Day Years Used Date Smoking Tobacco: Never Assessed Comments Unknown Sex and Gender Information Value Date Recorded Sex Assigned at Not on file Legal Sex Female 8:25 AM LEGAL ASSOCIATE Gender Identity Not on file Sexual Orientation Not on file documented as of this encounter Plan of Treatment Not on file documented as of this encounter Procedures Procedure Name Priority Date/Time Associated Diagnosis Comments MRSA SCREEN BY CULTURE Routine 03/18/2023 11:30 AM CDT Encounter for other preprocedural examination [ICD-10-CM] documented in this encounter Results * MRSA Screen by Culture (03/18/2023 11:30 AM CDT) Staphylococcus aureus (MRSA) screen Negative 03/20/2023 2:46 PM CDT [facility] Nose NASAL STRUCTURE / Unknown 03/18/2023 11:30 AM CDT 03/19/2023 3:33 PM CDT us Carlton Santa DO MICROBIOLOGY - GENERAL ORDERABL ES Final Result [facility] [address] [place] [address] documented in this encounter Visit Diagnoses Diagnosis Encounter for other preprocedural examination documented in this encounter
--- OUTSIDE RECORDS SUMMARY | 2025-05-06 07:12 | XMS_ITS | Patient Health Record ---
Author Organization [facility], [facility] Address [address] [place] [address] Care Team Providers Care Commissioned Fire Officer Name Role Phone NONE, NO PCP Primary Care Provider Jordi Ruiz Unavailable [phone] Allergies Allergen (clinical drug ingredient) Drug/Non Drug Allergy documented on EMR Reaction Allergy Type Onset Date Status sulfamethoxazole / trimethoprim Bactrim Unknown Drug Allergy Active Declomycin Unknown Drug Allergy Active meperidine Demerol Unknown Drug Allergy Active Vantin Unknown Drug Allergy Active erythromycin Erythromycin Unknown Drug Allergy A ctive gatifloxacin Gatifloxacin Unknown Drug Allergy A ctive ofloxacin Ofloxacin Unknown Drug Allergy Active Penicillin Unknown Drug Allergy Active Red Dye Unknown Drug Allergy Active Reason For Referral No Information Medications Medication SIG (Take, Route, Frequency, Duration) Notes Start Date End Date Status Atenolol 50 MG Oral for 90 Act matthew Latanoprost 0.005 % Ophthalmic for 25 Active Quinapril HCl 40 MG Oral for 90 Active Rosuvastatin Calcium 5 MG Oral for 90 Active Spironolactone 100 MG Oral for 90 Active Chlorthalidone 25 MG Oral for 90 Active Social History Tobacco Use: Social History Observation Description Date Details (start date - stop date) Never Smoker NA - NA Smoking Status: Question Answer Notes Patient is a never smoker Problems Problem Type SNOMED Code ICD Code Onset Dates Problem Status W/U Status Risk Notes Problem [id number] History of left hip replacement (Z96.642) Active confirmed Plan Of Treatment No Information Insurance Providers Payer Name Payer Address Payer Phone Subscriber Number Group Number Insured Name Patient Relationship to Insured Coverage Start Date [facility]age End Date [facility] [address] [place] [address] [phone] [id number] Mayela Hensley Self - patient is the insured Medications Administered Medication Instructions Date of Administration Dosage Notes Betamethasone Sodium Phospha te and Betamethasone Acetate 11/23/2021 12 mg Medical (General) History Medical History History ICD Code HTN Surgical History Surgery Date(Month/Year) L TKA 2019 bilateral LEONA 2007, 2008 gallbladder RCR L shoulder
--- OUTSIDE RECORDS SUMMARY | 2025-05-06 07:12 | XMS_ITS | Encounter Summary ---
Author Organization [facility] Address [address] [place] [address] Care Team Providers Care Meeting Manager Name Role Phone Unavailable Primary Care Provider Unavailabl e Encounter Details Date Type Department Care Team (Late st Contact Info) Description 07/20/2022 Lab Requisition LABORATORY [address] [place] [address] Tarah Choudhury MD [address] [place], [place] [id number] [email or web address] Neoplasm of uncertain behavior, unspecified; Personal history of other malignant neoplasm of skin Social History Tobacco Use Types Packs/Day Years Used Date Smoking Tobacco: Never Assessed Comments Unknown Sex and Gender Information Value Date Recorded Sex Assigned at Not on file Legal Sex Female 8:25 AM DEVELOPMENTAL MATHEMATICS PROFESSOR Gender Identity Not on file Sexual Orientation Not on file documented as of this encounter Plan of Treatment Not on file documented as of this encounter Procedures Procedure Name Priority Date/Time Associated Diagnosis Comments TISSUE EXAM Routine 07/19/2022 11:22 AM DEVELOPMENTAL MATHEMATICS PROFESSOR Neoplasm of uncertain behavior, unspecified Personal history of other malignant neoplasm of skin documented in this encounter Results * Tissue Exam (07/19/2022 11:22 AM DEVELOPMENTAL MATHEMATICS PROFESSOR) Final Diagnosis A. SKIN OF LEFT GROIN, BIOPSY: Benign seborrheic keratosis. 07/23/2022 4:36 PM DEVELOPMENTAL MATHEMATICS PROFESSOR [facility] at [address] DEVELOPMENTAL MATHEMATICS PROFESSOR Clinical Information Personal history of other malignant neoplasm of the skin. Lesion, left groin. ICD-10 codes D48.9, Z85.828. 07/23/2022 4:36 PM DEVELOPMENTAL MATHEMATICS PROFESSOR [facility] Microscopic Description Sections are examined microscopically, confirming the above diagnosis. 07/23/2022 4:36 PM DEVELOPMENTAL MATHEMATICS PROFESSOR [facility] Special Stains 07/23/2022 4:36 PM [facility] Gross Description The specimen is received in formalin, labeled appropriately with the patient's name and left groin. This consists of an ovoid shave of conley-delgado skin. This measures 1.2 x 0.7 x 0.1 cm in maximum dimensions. The margin is marked with ink. The specimen is serially subdivided transversely and submitted in cassette A1. MARAVILLA/nk 07/23/2022 4:36 PM [facility] Tissue INGUINAL REGION STRUCTURE / Unknown 07/19/2022 11:22 AM DEVELOPMENTAL MATHEMATICS PROFESSOR 07/22/2022 2:13 PM DEVELOPMENTAL MATHEMATICS PROFESSOR us Tarah Choudhury MD PATHOLOGY ORDERABLES Final Res ult [facility] [address] [place] [address] documented in this encounter Visit Diagnoses Diagnosis Neoplasm of uncertain behavior, unspecified Personal history of other malignant neoplasm of skin documented in this encounter
[2025-05-06] MEDS: HYDROcodone-acetaminophen 5-325 mg Tablet 1 TAB PO (07:26)
[2025-05-06 07:27] VITALS: BP 126/82; PULSE 116; O2SAT 98
[2025-05-06 07:39] VITALS: RESP 20; O2SAT 100
[2025-05-06] MEDS: morphine 4 mg/mL SDV 1 mL IM (07:39)
== END 2025-05-06 07:48 | disposition home or self-care (01) ==
PROVIDERS: Emergency Provider Emergency Medicine
DX: M25.511 Pain in right shoulder (principal)
CPT/HCPCS: 73030; 96372; 99284; J2270; J9999